=== PATIENT | male | born 1955 | race Caucasian/White ===

== ENCOUNTER 2019-05-02 07:29 | Observation (INO) | payer OTHER ==
[2019-05-02] MEDS: MITOMYCIN 40 MG VIAL IS (06:00)
[~2019-05-02 07:29] MED LIST: CEFAZOLIN 2 GM/50 ML (PMX) 50 ML IVPB
[2019-05-02] MEDS ORDERED: PROPOFOL 20 ML (08:19)
[2019-05-02] MEDS ORDERED: CEFAZOLIN 1 GM INJ (08:19)
[2019-05-02] MEDS ORDERED: MIDAZOLAM 1 MG/ML 2 ML INJ (08:19)
[2019-05-02] MEDS ORDERED: FENTAnyl 50 MCG/ML VIAL ×2 (08:19→10:04)
[2019-05-02] MEDS ORDERED: DESFLURANE 15 MIN (08:19)
[2019-05-02] MEDS ORDERED: LIDOCAINE 2% (SDV) 5 ML INJ (08:19)
[2019-05-02] MEDS ORDERED: MEPERIDINE 25 MG INJ IV (08:30)
[2019-05-02] MEDS ORDERED: HYDROmorphONE 1 MG/5 ML IV SYRINGE IV ×3 (08:30)
[2019-05-02] MEDS ORDERED: hydrALAzine 20 MG INJ IV (08:30)
[2019-05-02] MEDS ORDERED: OXYCODONE/ACETAMINOPHEN (5/325) TAB PO ×2 (08:30)
[2019-05-02] MEDS ORDERED: ONDANSETRON 4 MG INJ IV (08:30)
[2019-05-02] MEDS ORDERED: LABETALOL HCL 20MG INJ IV (08:30)
[2019-05-02] MEDS ORDERED: DEXAMETHASONE 4 MG/ML 5 ML INJ (09:27)
[2019-05-02] MEDS ORDERED: ONDANSETRON 4 MG INJ (09:27)
[2019-05-02] MEDS ORDERED: FAMOTIDINE 20 MG INJ (09:29)
[2019-05-02] MEDS: CEFTRIAXONE 2 GM/50 ML (PMX) 50 ML IVPB (09:34)
[2019-05-02] MEDS ORDERED: BELLADONNA ALK/OPIUM SUPP PR (11:00)
[2019-05-02] MEDS ORDERED: CEFTRIAXONE 1 GM/50 ML (PMX) 50 ML IVPB (11:00)
[2019-05-02] MEDS ORDERED: HYDROCODONE/APAP (5/325) TAB PO (11:00)
[2019-05-02] MEDS ORDERED: morphine SULFATE/PF (2 MG/2 ML) SYG IV (11:00)
[2019-05-02] MEDS ORDERED: MAGNESIUM HYDROXIDE 30ML CUP PO (11:00)
[2019-05-02] MEDS: BELLADONNA ALK/OPIUM SUPP PR (11:07)
[2019-05-02] MEDS: DEXTROSE 5%-0.45% NACL 1,000 ML IV (14:56)
[2019-05-02] MEDS: DOCUSATE SODIUM 100 MG CAP PO (20:19)
[2019-05-02] MEDS: TAMSULOSIN (SR) 0.4 MG CAP PO (20:19)
[2019-05-03] MEDS: DEXTROSE 5%-0.45% NACL 1,000 ML IV ×2 (00:47→06:27)
[2019-05-03] MEDS: DOCUSATE SODIUM 100 MG CAP PO (08:58)
[2019-05-03] MEDS: AMLODIPINE 10 MG TAB PO (08:59)
[2019-05-03] MEDS: FINASTERIDE 5 MG TAB PO (08:59)
[2019-05-03] MEDS: CEFTRIAXONE 1 GM/NS 50 ML IVPB (08:59)
== END 2019-05-03 11:35 | disposition home or self-care (01) ==
LOC: SDS 07:29 → REC 11:01 → PP2 13:50
DX: C67.2 Malignant neoplasm of lateral wall of bladder (principal); N30.20 Other chronic cystitis without hematuria; R33.9 Retention of urine, unspecified
CPT/HCPCS: 52240; 88305; 88341; 88342; 99217

== ENCOUNTER 2019-05-16 11:08 | Observation (INO) | payer OTHER ==
[2019-05-16] MEDS: ERTAPENEM SODIUM 1 GM in SOD CHLORIDE 0.9% 100 ML IVPB (07:00)
[2019-05-16] MEDS: LACTATED RINGER'S 1,000 ML IV (12:30)
[2019-05-16] MEDS ORDERED: MEPERIDINE 25 MG INJ IV (13:30)
[2019-05-16] MEDS ORDERED: LABETALOL HCL 20MG INJ IV (13:30)
[2019-05-16] MEDS ORDERED: hydrALAzine 20 MG INJ IV (13:30)
[2019-05-16] MEDS ORDERED: FENTAnyl 50 MCG/ML VIAL IV (13:30)
[2019-05-16] MEDS ORDERED: DIPHENHYDRAMINE 50 MG INJ IV (13:30)
[2019-05-16] MEDS ORDERED: EPHEDrine 25 MG/5 ML SYG IV (13:30)
[2019-05-16] MEDS ORDERED: ONDANSETRON 4 MG INJ IV (13:30)
[2019-05-16] MEDS ORDERED: PROCHLORPERAZINE 10 MG INJ IV (13:30)
[2019-05-16] MEDS ORDERED: HYDROmorphONE 1 MG/5 ML IV SYRINGE IV ×2 (13:30)
[2019-05-16] MEDS ORDERED: MIDAZOLAM 1 MG/ML 2 ML INJ (13:48)
[2019-05-16] MEDS ORDERED: DEXAMETHASONE 4 MG/ML 5 ML INJ (14:07)
[2019-05-16] MEDS ORDERED: LIDOCAINE 2% (SDV) 5 ML INJ (14:07)
[2019-05-16] MEDS ORDERED: ONDANSETRON 4 MG INJ (14:07)
[2019-05-16] MEDS ORDERED: PROPOFOL 20 ML ×2 (14:07)
[2019-05-16] MEDS ORDERED: EPHEDrine 25 MG/5 ML SYG (14:08)
[2019-05-16] MEDS ORDERED: ESMOLOL 10 ML (14:37)
[2019-05-16] MEDS: BELLADONNA ALK/OPIUM SUPP PR (15:00)
[2019-05-16] MEDS: DEXTROSE 5%-0.45% NACL 1,000 ML IV (15:03)
[2019-05-16] MEDS ORDERED: HYDROCODONE/APAP (5/325) TAB PO (15:30)
[2019-05-16] MEDS ORDERED: BELLADONNA ALK/OPIUM SUPP PR (15:30)
[2019-05-16] MEDS ORDERED: MAGNESIUM HYDROXIDE 30ML CUP PO (15:30)
[2019-05-16] MEDS ORDERED: morphine 2 MG INJ IV (15:30)
[2019-05-16] MEDS ORDERED: ACETAMINOPHEN 325 MG TAB PO (15:30)
[2019-05-16] MEDS: HYDROmorphONE 1 MG/5 ML IV SYRINGE IV (16:03)
[2019-05-16] MEDS: FINASTERIDE 5 MG TAB PO (17:33)
[2019-05-16] MEDS: CIPROFLOXACIN 500 MG TAB PO (17:34)
[2019-05-16] MEDS: TAMSULOSIN (SR) 0.4 MG CAP PO (20:45)
[2019-05-16] MEDS: DOCUSATE SODIUM 100 MG CAP PO (20:45)
[2019-05-17] MEDS: CIPROFLOXACIN 500 MG TAB PO (06:12)
[2019-05-17] MEDS: DOCUSATE SODIUM 100 MG CAP PO (08:51)
[2019-05-17] MEDS: AMLODIPINE 10 MG TAB PO (08:52)
== END 2019-05-17 10:39 | disposition home or self-care (01) ==
LOC: SDS 11:08 → REC 15:08 → MS1 17:00
DX: C61 Malignant neoplasm of prostate (principal); R33.9 Retention of urine, unspecified
CPT/HCPCS: 52601; 87086; 88305